=== PATIENT | female | born 1985 | race Caucasian/White ===

== ENCOUNTER → 2020-06-18 | Outpatient (CLI) | payer MEDICAID | END | disposition home or self-care (01) | LOC: LAB 13:22 | PROVIDERS: ATTEND Obstetrics & Gynecology | DX: Z01.812 Encounter for preprocedural laboratory examination (principal); Z20.828 Contact with and (suspected) exposure to other viral communicable diseases | CPT/HCPCS: C9803; U0003 ==

== ENCOUNTER 2020-06-22 06:00 | Day surgery (SDC) | payer MEDICAID ==
[~2020-06-22] VITALS: Ht 152.4 cm; Wt 47.2 kg
[~2020-06-22 06:00] MED LIST: LACTATED RINGERS 1,000 ML IV SCH
[2020-06-22 06:44] LABS: BASOPHILS % 0.4 % (0.0-2.0); EOSINOPHILS % 0.9 % (0.0-5.0); HEMOGLOBIN. 13.3 g/dL (12.0-16.0); MEAN CORPUSCULAR HEMOGLOBIN 29.3 pg (28.0-32.0); MEAN CORPUSCULAR VOLUME 85.8 fL (81.0-99.0); MEAN PLATELET VOLUME 8.2 fl (7.4-10.4); MONOCYTES % 7.7 % (2.0-8.0); PLATELET 214 x1000/uL (130-400); RED BLOOD CELL COUNT 4.54 mill/uL (4.2-5.4); RED CELL DISTRIBUTION WIDTH 13.8 % (11.6-14.6)
[2020-06-22 06:53] LABS: CHLORIDE 108 mEq/L (98-107)
[2020-06-22] MEDS ORDERED: FENTANYL CITRATE/PF 50MCG/ML 2ML VIAL ONE (06:53)
[2020-06-22] MEDS ORDERED: MIDAZOLAM HCL 2 MG/2 ML VIAL ONE (06:53)
[2020-06-22] MEDS ORDERED: ROCURONIUM BROMIDE 10MG/ML VIAL 5ML IV ONE ×2 (06:53→08:43)
[2020-06-22] MEDS ORDERED: PROPOFOL 200MG/20ML VIAL IV ONE (06:53)
[2020-06-22] MEDS ORDERED: LIDOCAINE HCL/PF 1% 10 MG/ML 5ML VIAL ONE (06:54)
[2020-06-22] MEDS ORDERED: CEFAZOLIN SODIUM 1000MG/VIAL ONE (06:58)
[2020-06-22 07:03] LABS: CLARITY URINE CLEAR (CLEAR); COLOR URINE DK YELLOW (YELLOW); KETONES URINE NEGATIVE (NEGATIVE); LEUKOCYTE ESTERASE URINE NEGATIVE (NEGATIVE); NITRITE URINE NEGATIVE (NEGATIVE); OCCULT BLOOD URINE 3+ (NEGATIVE); PROTEIN URINE NEGATIVE (NEGATIVE); SPECIFIC GRAVITY URINE 1.025 (1.005-1.030)
[2020-06-22 07:11] LABS: HCG SCREEN NEGATIVE
[2020-06-22] MEDS ORDERED: SKIN ADHESIVE 0.7 GM EA TOP ONE (07:12)
[2020-06-22] MEDS ORDERED: BUPIVACAINE HCL/PF 0.5% (5MG/ML) 10ML ONE (07:12)
[2020-06-22] MEDS ORDERED: VASOPRESSIN 20 UNIT/ML 1ML ONE (07:13)
[2020-06-22] MEDS ORDERED: METOCLOPRAMIDE HCL 10MG/2ML VIAL ONE (07:55)
[2020-06-22] MEDS ORDERED: DEXAMETHASONE 4MG/ML 1ML VIAL ONE (07:55)
[2020-06-22] MEDS ORDERED: PHENYLEPHRINE HCL 10 MG/ML 1ML (IV VIAL) IV ONE (07:55)
[2020-06-22] MEDS ORDERED: GLYCOPYRROLATE 0.2 MG/ML 2ML VIAL ONE ×2 (08:08→09:04)
[2020-06-22] MEDS ORDERED: ESMOLOL HCL 10MG/ML 10ML VIAL IV ONE (08:15)
[2020-06-22] MEDS ORDERED: HYDROMORPHONE HCL/PF 2MG/ML (OR) ONE (08:37)
[2020-06-22] MEDS ORDERED: NEOSTIGMINE METHYLSULFATE 1MG/ML 10 ML VIAL ONE (09:04)
[2020-06-22] MEDS ORDERED: ONDANSETRON HCL 4MG/2ML INJ ONE (09:05)
[2020-06-22] MEDS ORDERED: KETOROLAC 30MG/ML VIAL ONE (09:06)
[2020-06-22] MEDS ORDERED: MORPHINE SULFATE 4 MG/ML CPJ (NOT FOR IM USE) IV PRN (09:15)
[2020-06-22] MEDS ORDERED: HYDROCODONE/ACETAMINOPHEN 5/325MG TABLET PO PRN (09:15)
[2020-06-22] MEDS ORDERED: ONDANSETRON HCL 4MG/2ML INJ IV PRN ×2 (09:15→09:30)
[2020-06-22] MEDS ORDERED: HYDROMORPHONE HCL/PF 2MG/ML CPJ IV PRN (09:30)
[2020-06-22] MEDS ORDERED: MEPERIDINE HCL/PF 25MG/ML CPJ IV PRN (09:30)
[2020-06-22] MEDS ORDERED: FENTANYL CITRATE/PF 50MCG/ML 2ML VIAL IV PRN (09:30)
[2020-06-22 10:16] VITALS: BP 119/62
== END 2020-06-22 13:15 | disposition home or self-care (01) ==
LOC: OR 06:00
PROVIDERS: ATTEND Obstetrics & Gynecology
DX: N80.9 Endometriosis, unspecified (principal); R10.2 Pelvic and perineal pain; N83.202 Unspecified ovarian cyst, left side; F41.9 Anxiety disorder, unspecified; M19.90 Unspecified osteoarthritis, unspecified site; Z79.899 Other long term (current) drug therapy; Z98.890 Other specified postprocedural states
CPT/HCPCS: 36415; 58662; 80048; 81003; 84703; 85025; 86850; 86900; 86901; 88304; C1725; J0690; J1100; J1170; J1885; J2250; J2370; J2405; J2704; J2710; J2765; J3010; J3490; S2900